=== PATIENT | male | born 1935 | race Caucasian/White ===

== ENCOUNTER → 2016-08-17 | Outpatient (CLI) | payer MEDICARE ==
[~2016-08-17] MED LIST: ASPI81TA11 PO; DIPH1TAB36 PO; FERR324T4 PO; GLIM4TAB PO; LISI2.5T55 PO; METO50TA11 PO; METR250 PO; ROSU5 PO; SPIR25TA PO; TAB-TAB PO; VITA500S3 PO
[2016-08-17 12:21] LABS: AUTOMATED NEUTROPHIL # 3.3 TH/MM3 (1.8-7.7); BASOPHIL % 0.5 % (0.0-2.0); EOSINOPHIL # 0.1 TH/MM3 (0-0.4); EOSINOPHIL % 1.6 % (0.0-4.0); HEMATOCRIT 44.2 % (39.0-51.0); HEMO FLAGS DIFF FINAL; LYMPH % 31.8 % (9.0-44.0); LYMPHOCYTE # 1.9 TH/MM3 (1.0-4.8); MEAN CELL VOLUME 89.8 FL (80.0-100.0); MEAN CORPUSCULAR HEMOGLOBIN 29.6 PG (27.0-34.0); MONO % 9.3 % (0.0-8.0); NEUT % 56.8 % (16.0-70.0); PLATELET COUNT 239 TH/MM3 (150-450); RED BLOOD COUNT 4.92 MIL/MM3 (4.50-5.90); RED CELL DISTRIBUTION WIDTH 14.4 % (11.6-17.2); WHITE BLOOD COUNT 5.8 TH/MM3 (4.0-11.0)
[2016-08-17 12:24] LABS: ALKALINE PHOSPHATASE 60 U/L (45-117); ALT (GPT) 19 U/L (12-78); ANION GAP 10 MEQ/L (5-15); AST (GOT) 13 U/L (15-37); BICARBONATE 21.9 MEQ/L (21.0-32.0); BLOOD UREA NITROGEN 21 MG/DL (7-18); CHLORIDE 108 MEQ/L (98-107); GLOMERULAR FILTRATION RATE 46 ML/MIN (>89); GLUCOSE,FASTING 120 MG/DL (74-99); HDL CHOLESTEROL 47.7 MG/DL (40.0-60.0); POTASSIUM 5.7 MEQ/L (3.5-5.1); SODIUM (NA) 140 MEQ/L (136-145); TOTAL BILIRUBIN ADULT 0.7 MG/DL (0.2-1.0)
[2016-08-17 12:25] LABS: FREE T4 0.97 NG/DL (0.76-1.46); LDL CHOLESTEROL 66 MG/DL (0-99)
== END ==
LOC: ELAB 09:58
PROVIDERS: ATTEND Family Medicine
DX: I10 Essential (primary) hypertension (principal); N40.0 Benign prostatic hyperplasia without lower urinary tract symptoms; R53.83 Other fatigue
CPT/HCPCS: 36415; 80053; 80061; 84153; 84439; 85025

== ENCOUNTER → 2016-11-09 | Day surgery (SDC) | payer MEDICARE ==
[~2016-11-09] MED LIST changes: +LACTATED RINGER'S 1,000 ML BAG IV ONE; +PROPOFOL 200 MG/20 ML AMP IV ONE
--- NOTE | 2016-11-09 13:42 | GIPROC ---
[facility] [address] [facility], [address] EGD PROCEDURE REPORT EXAM DATE: 11/09/2016 PATIENT NAME: Ata Disla MR #: [id number] BIRTHDATE: 1935 ATTENDING: Jas Dominguez MD ORDER #: [id number] [employer] WORKER: Alexa Live RN STATUS: outpatient INDICATIONS: The patient is a 81 yr old male here for an EGD due to epigastric abdominal pain PROCEDURE PERFORMED: EGD w/ biopsy MEDICATIONS: None, Per Anesthesia, None, and Per Anesthesia. TOPICAL ANESTHETIC: CONSENT: The patient understands the risks and benefits of the procedure and understands that these risks include, but are not limited to: sedation, allergic reaction, infection, perforation and/or bleeding. Alternative means of evaluation and treatment include, among others: physical exam, x-rays, and/or surgical intervention. The patient elects to proceed with this endoscopic procedure. medical equipment was checked for proper function. Hand hygiene and appropriate measures for infection prevention was taken. After the risks, benefits and alternatives of the procedure were thoroughly explained, Informed consent was verified, confirmed and timeout was successfully executed by the treatment team. The patient was anesthetized with topical anesthesia and the EC-[id number] ([id number]) endoscope was introduced through the mouth and advanced to the second portion of the duodenum. Retroflexed views revealed no abnormalities The gastroscope was then slowly withdrawn and removed. STOMACH: There was mild gastritis in the gastric antrum. Multiple biopsies were performed. The endoscopy was otherwise normal. ADVERSE EVENTS: There were no complications. IMPRESSIONS: 1. There was mild gastritis in the gastric antrum; multiple biopsies were performed 2. Normal endoscopy otherwise 3. Retroflexed views revealed no abnormalities RECOMMENDATIONS: 1. Await biopsy results. Biopsy results will not be ready for 7-10 days. If you don't hear from us in two weeks, call our office for biopsy results. 2. Follow-up: GI clinic 4 week(s) PATIENT CONDITION: stable DISPOSITION: Home REPEAT EXAM: Jas Dominguez MD eSigned: Jas Dominguez MD 11/09/2016 1:41 PM cc: Trini Guo, [facility]
== END | disposition home or self-care (01) ==
LOC: ESDC 11:20
PROVIDERS: ATTEND Internal Medicine Gastroenterology
DX: R10.13 Epigastric pain (principal); K29.70 Gastritis, unspecified, without bleeding
CPT/HCPCS: 00740; 43239; 88305; 88312; J7120

== ENCOUNTER 2017-05-07 05:57 | Emergency (ER) | payer MEDICARE ==
[~2017-05-07] VITALS: Ht 180.3 cm; Wt 75.0 kg
[~2017-05-07 05:57] MED LIST changes: -LACTATED RINGER'S 1,000 ML BAG IV ONE; -PROPOFOL 200 MG/20 ML AMP IV ONE
[2017-05-07 06:01] VITALS: BP 134/62; PULSE 81; RESP 20; TEMP 97.5; O2SAT 98
[2017-05-07 07:08] LABS: ALT (GPT) 71 U/L (12-78); ANION GAP 9 MEQ/L (5-15); AST (GOT) 70 U/L (15-37); BICARBONATE 18.5 MEQ/L (21.0-32.0); BLOOD UREA NITROGEN 19 MG/DL (7-18); CHLORIDE 103 MEQ/L (98-107); GLOMERULAR FILTRATION RATE 49 ML/MIN (>89); POTASSIUM 4.6 MEQ/L (3.5-5.1); SODIUM (NA) 130 MEQ/L (136-145)
[2017-05-07 07:11] LABS: ALKALINE PHOSPHATASE 64 U/L (45-117); TOTAL BILIRUBIN ADULT 1.1 MG/DL (0.2-1.0)
[2017-05-07] MEDS ORDERED: SODIUM CHLOR 0.9% 1000 ML INJ 1,000 ML IV ONE (07:45)
--- NOTE | 2017-05-07 07:47 | PD ---
HPI Chief Complaint: GI Complaint Time Seen by Provider: 07:36 Travel History International Travel<30 days: No Contact w/Intl Traveler<30days: No Traveled to known affect area: No History of Present Illness HPI This is a 81-year-old male who presents stating his urged him to come and have his blood work checked to make sure he is not dehydrated. The patient's had intermittent episodes of gastroenteritis. He states that he has no complaints whatsoever. The patient states he's here just to appease his . PFSH Past Medical History Anxiety: Yes Depression: Yes Heart Rhythm Problems: No Cancer: Yes (COLON,LYMPHOMA) Cardiac Catheterization: Yes Cardiomyopathy: Yes Cardiovascular Problems: Yes (CARDIOMYOPATHY-EF 30%) High Cholesterol: Yes Chemotherapy: Yes (1998) Congestive Heart Failure: No Diabetes: Yes Patient Takes Glucophage: No Diminished Hearing: Yes (BILATERAL HEARING AIDS) Hypertension: Yes Sleep Apnea: Yes Tetanus Vaccination: < 5 Years Influenza Vaccination: Yes Past Surgical History Abdominal Surgery: Yes (COLECTOMY FOR CA,2000,WITH INTERNAL JENSEN POUCH) Appendectomy: Yes (1964) Cholecystectomy: Yes () Coronary Artery Bypass Graft: No Family History Family Myocardial Infarction: Yes Social History Alcohol Use: No Tobacco Use: No Substance Use: No Allergies-Medications (Allergen,Severity, Reaction): Coded Allergies: morphine (Unverified Allergy, Unknown, Hallucinations, 03/08/17) Uncoded Allergies: BLOOD THINNERS (Adverse Reaction, Severe, OSOTOMY BLEED, 12/23/12) Reported Meds & Prescriptions Reported Meds & Active Scripts Active Flagyl (Metronidazole) 250 Mg Tab 250 Mg PO TID Reported Tylenol Pm (Acetaminophen/Diphenhydramine HCl) Tab 1 Tab PO HS Multivitamin (Multivitamins) 1 Tab Tab 1 Tab PO DAILY Vitamin B-12 (Cyanocobalamin) 500 Mcg Eugene Unknown Dose PO DAILY Aspirin EC 81 mg (Aspirin) 81 Mg Tab 81 Mg PO DAILY Lisinopril 2.5 mg (Lisinopril) 2.5 Mg Tab 2.5 Mg PO DAILY Ferrous Sulfate 325 Mg Tab 325 Mg PO DAILY Spironolactone 25 Mg Tab 25 Mg PO DAILY Toprol XL (Metoprolol Succinate) 50 Mg Tabcr 50 Mg PO DAILY Crestor (Rosuvastatin Calcium) 5 Mg Tab 2.5 Mg PO DAILY Glimepiride 4 Mg Tab 4 Mg PO DAILY Review of Systems Except as stated in HPI: all other systems reviewed are Neg General / Constitutional: No: Fever, Chills HENT: No: Headaches, Lightheadedness Cardiovascular: No: Chest Pain or Discomfort, Palpitations Respiratory: No: Cough, Shortness of Breath Gastrointestinal: Positive: Nausea, Vomiting (X days ago. The patient states he gets this intermittently.), No: Abdominal Pain Genitourinary: No: Dysuria, Decreased Urinary Output Musculoskeletal: No: Weakness, Pain Neurologic: No: Weakness, Dizziness, Headache Physical Exam Narrative GENERAL: Well-nourished, well-developed patient, in no acute distress. The patient is comfortable and states he has no complaints. SKIN: Focused skin assessment warm/dry. HEAD: Normocephalic/atraumatic. EYES: No scleral icterus. No injection or drainage. NECK: Supple, trachea midline. No JVD or lymphadenopathy. CARDIOVASCULAR: Regular rate and rhythm without murmurs, gallops, or rubs. RESPIRATORY: Breath sounds equal bilaterally. No accessory muscle use. GASTROINTESTINAL: Abdomen soft, non-tender, nondistended. MUSCULOSKELETAL: No cyanosis, or edema. NEUROLOGICAL: Awake and alert. Cranial nerves II through XII intact. Motor grossly within normal limits. Five out of 5 muscle strength in all muscle groups. Normal speech. Data Data Last Documented VS Vital Signs Date Time Temp Pulse Resp B/P (MAP) Pulse Ox O2 Delivery O2 Flow Rate FiO2 05/07/17 06:01 97.5 81 20 134/62 (86) 98 Room Air Orders Orders Comprehensive Metabolic Panel (05/07/17 06:39) Sodium Chlor 0.9% 1000 Ml Inj (Ns 1000 M (05/07/17 07:45) Labs Laboratory Tests Test 05/07/17 06:40 Blood Urea Nitrogen 19 MG/DL Creatinine 1.38 MG/DL Random Glucose 115 MG/DL Total Protein 6.2 GM/DL Albumin 3.1 GM/DL Calcium Level 8.7 MG/DL Alkaline Phosphatase 64 U/L Aspartate Amino Transf (AST/SGOT) 70 U/L Alanine Aminotransferase (ALT/SGPT) 71 U/L Total Bilirubin 1.1 MG/DL Sodium Level 130 MEQ/L Potassium Level 4.6 MEQ/L Chloride Level 103 MEQ/L Carbon Dioxide Level 18.5 MEQ/L Anion Gap 9 MEQ/L Estimat Glomerular Filtration Rate 49 ML/MIN MDM Medical Decision Making Medical Screen Exam Complete: Yes Emergency Medical Condition: Yes Differential Diagnosis Dehydration versus metabolic derangement versus normal exam Narrative Course 81-year-old male presents at the request of his for evaluation for dehydration. The patient states that he he has no complaints at this time. He states he's here to appease his . The patient was noted to have a sodium of 1:30. His BUN and creatinine are elevated. They have been previously elevated and it is at his baseline. He's been given 1 L of IV fluid. He'll be discharged. He'll be instructed to follow up with his primary care physician, Dr. Chavez this week as scheduled. Diagnosis Primary Impression: Hyponatremia Additional Impression: Chronic kidney disease Additional Instructions: Follow up with her primary care physician for reevaluation of your sodium and kidney function. Disposition: 01 DISCHARGE HOME Condition: Stable David Villanueva MD May 07, 2017 07:47
[2017-05-07 09:15] VITALS: BP 146/67; PULSE 62; RESP 20; O2SAT 100
== END 2017-05-07 09:15 | disposition home or self-care (01) ==
LOC: NEPE 05:57
DX: E87.1 Hypo-osmolality and hyponatremia (principal); N18.9 Chronic kidney disease, unspecified; I12.9 Hypertensive chronic kidney disease with stage 1 through stage 4 chronic kidney disease, or unspecified chronic kidney disease; E11.9 Type 2 diabetes mellitus without complications; E78.00 Pure hypercholesterolemia, unspecified; G47.30 Sleep apnea, unspecified; H91.93 Unspecified hearing loss, bilateral; Z79.84 Long term (current) use of oral hypoglycemic drugs; Z86.59 Personal history of other mental and behavioral disorders; Z85.038 Personal history of other malignant neoplasm of large intestine; Z85.72 Personal history of non-Hodgkin lymphomas; Z86.79 Personal history of other diseases of the circulatory system
CPT/HCPCS: 80053; 96360; 99284; J7030